=== PATIENT | female | born 1950 | race Caucasian/White ===

== ENCOUNTER 2018-03-07 17:17 | Emergency (ER) | payer MEDICARE ==
[2018-03-07] MEDS ORDERED: NS 0.9% 1000 ML* 1,000 ML IV ONE (17:57)
--- NOTE | 2018-03-07 18:13 | ED ---
Syncope/Near Syncope - HPI Summary HPI Summary: Pt is a 67 y/o female BIBA who presents s/p near-syncopal episode at 17:00. After doing a mild hike with her friend at [facility], she sat down to have lunch. She suddenly felt like she was going to black out, and as if her brain was not getting oxygen. She felt the sensation that her neck was cutting off her oxygen supply around her carotid arteries. Pt laid down on the table and felt like she needed to hold onto the table to be stabled. She became nauseated and subsequently had a BM that was not easy. Pt also states she felt clammy, but denies any CP or SOB. As per friend, she was bending down a lot with her head below her knees during the hike. Pt states lately she has been swimming a lot, and felt last night like she pulled something in her neck. Now she feels better, but still nervous, shaky, and has mild left neck pain. She reports having previous incidents of tachycardia, up to 220 bpm. Pt also states she once thought she had a partially blocked carotic artery, but this turned out to be false. - History Of Current Complaint Chief Complaint: EDDizziness Time Seen by Provider: 03/07/18 17:28 Hx Obtained From: Patient, Family/Assembler Camper - Friend Onset/Duration: Sudden Onset - 17:00, Resolved Context: Witnessed Activity At Onset: At Rest Associated Head Trauma: No Aggravating Factor(s): Other - Unknown, potentially neck movement Alleviating Factor(s): Position Change - Laying down, Other - BM Associated Signs And Symptoms: Diarrhea, Dizzy, Lightheadedness - Allergies/Home Medications Allergies/Adverse Reactions: Allergies Allergy/AdvReac Type Severity Reaction Status Date / Time Penicillins Allergy Hives Verified 03/07/18 17:29 Home Medications: Home Medications Levothyroxine TAB* [Synthroid TAB*] 88 mcg PO DAILY 03/07/18 [History Confirmed 03/07/18] PMH/Surg Hx/FS Hx/Imm Hx Endocrine/Hematology History: Reports: Hx Thyroid Disease - Hypothyroid Cardiovascular History: Reports: Other Cardiovascular Problems/Disorders - Carotid artery issues - Immunization History Date of Tetanus Vaccine: < 10 years Date of Influenza Vaccine: 2017 Immunizations Up to Date: Yes Infectious Disease History: No Infectious Disease History: Denies: Traveled Outside the [place] in Last 30 Days - Family History Known Family History: Positive: Other - NEGATIVE: CVA - Social History Alcohol Use: Rare Substance Use Type: Reports: Marijuana Substance Use Comment - Amount & Last Used: Pt states rarely Smoking Status (MU): Current Some Day Smoker Review of Systems Positive: Skin Diaphoresis - Clammy Negative: Chest Pain Negative: Shortness Of Breath Positive: Nausea, Other - Sudden BM Positive: Other - Neck pain Neurological: Other - Near-syncope Positive: Weakness Positive: Anxious All Other Systems Reviewed And Are Negative: Yes Physical Exam - Summary Physical Exam Summary: GENERAL: Patient is a well developed and nourished F who is lying comfortable in the stretcher. Patient is not in any acute respiratory distress. HEAD AND FACE: Normocephalic EYES: PERRLA, EOMI x 2. EARS: Hearing grossly intact. MOUTH: Oropharynx within normal limits. NECK: Supple, trachea is midline, no adenopathy, no JVD, no carotid bruit. CHEST: Symmetric, no tenderness at palpation LUNGS: Clear to auscultation bilaterally. No wheezing or crackles. CVS: Regular rate and rhythm, S1 and S2 present, no murmurs or gallops appreciated. ABDOMEN: Soft, non-tender. Bowel sounds are normal. No abdominal abnormal pulsations. EXTREMITIES: Full ROM in all major joints, no edema, no cyanosis or clubbing. NEURO: Alert and oriented x 3. No acute neurological deficits. Speech is normal and follows commands. Cranial nerves II-XII grossly intact, no dysmetria finger to nose, nml heel to galvan SKIN: Dry and warm Triage Information Reviewed: Yes Vital Signs On Initial Exam: Initial Vitals Temp Pulse Resp BP Pulse Ox 97.1 F 67 18 152/89 98 03/07/18 17:26 03/07/18 17:26 03/07/18 17:26 03/07/18 17:26 03/07/18 17:26 Vital Signs Reviewed: Yes Diagnostics - Vital Signs Vital Signs Temp Pulse Resp BP Pulse Ox 03/07/18 17:26 97.1 F 67 18 152/89 98 - Laboratory Result Diagrams: 03/07/18 18:27 03/07/18 18:27 Lab Statement: Any lab studies that have been ordered have been reviewed, and results considered in the medical decision making process. - EKG 18:33 Cardiac Rate: NL - 66 bpm EKG Rhythm: Sinus Rhythm ST Segment: Normal EKG Interpretation: No T-wave changes, normal interval Course/Dx Course Of Treatment: Pt is a 67 y/o female BIBA who presents s/p near-syncopal episode at 17:00. After doing a mild hike with her friend at [facility], she sat down to have lunch. She suddenly felt like she was going to black out, and as if her brain was not getting oxygen. She felt the sensation that her neck was cutting off her oxygen supply around her carotid arteries. Pt laid down on the table and felt like she needed to hold onto the table to be stabled. She became nauseated and subsequently had a BM that was not easy. Pt also states she felt clammy, but denies any CP or SOB. As per friend, she was bending down a lot with her head below her knees during the hike. Pt states lately she has been swimming a lot, and felt last night like she pulled something in her neck. Now she feels better, but still nervous, shaky, and has mild left neck pain. She reports having previous incidents of tachycardia, up to 220 bpm. Pt also states she once thought she had a partially blocked carotic artery, but this turned out to be false. A neuro exam was normal. An EKG was normal. Dx are near syncope and neck pain. Pt signed out to Dr. Monsalve, pending CXR and CTA. - Diagnoses Provider Diagnoses: Near syncope, Neck pain Discharge - Sign-Out/Discharge Documenting (check all that apply): Sign-Out Patient Signing out patient TO: Madhu Monsalve - Discharge Plan Condition: Improved Disposition: HOME Patient Education Materials: Near Syncope (ED) Referrals: Zulma Dawkins MD [Primary Care Provider] - Additional Instructions: There was concern by the radiologist that you're carotid arteries may have an irregular appearance suggestive of a condition called fibromuscular dysplasia. Your primary care doctor can refer you to a vascular specialist who would be more equipped to make a proper diagnosis and order any further studies. It does not appear that this has anything to do with your problems today. - Billing Disposition and Condition Condition: IMPROVED Disposition: Home - Attestation Statements Document Initiated by Scribe: Yes Documenting Scribe: Ashley Vasquez Provider For Whom Scribe is Documenting (Include Credential): Renetta Baca MD Scribe Attestation: I, Ashley Vasquez, scribed for Renetta Baca MD on 03/11/18 at 1738. Scribe Documentation Reviewed: Yes Provider Attestation: The documentation as recorded by the scribe, Ashley Vasquez accurately reflects the service I personally performed and the decisions made by me, Renetta Baca MD
[2018-03-07 18:36] LABS: ABS Basophils 0 10^3/ul (0-0.2); ABS Eosinophils 0 10^3/ul (0-0.6); ABS Monocytes 0.4 10^3/ul (0-0.8); ABS Neutrophils 5.3 10^3/ul (1.5-7.7); ABS Nucleated RBC 0 10^3/ul; Eosinophil % 0.7 % (0-6); Hematocrit 36 % (35-47); Hemoglobin 12.7 g/dl (12.0-16.0); Lymphocyte % 14.1 % (25-47); Mean Corpuscular HGB Conc 35 g/dl (31-36); Mean Corpuscular Hemoglobin 32 pg (27-31); Mean Corpuscular Volume 90 fL (80-97); Mean Platelet Volume 8.7 um3 (7.4-10.4); Nucleated Red Blood Cells % 0; Platelet Count 252 10^3/ul (150-450); Red Blood Count 4.04 10^6/ul (4.00-5.40); Red Cell Distribution Width 13 % (10.5-15); White Blood Count 6.8 10^3/ul (3.5-10.8)
[2018-03-07 18:42] LABS: INR 0.94 (0.77-1.02)
[2018-03-07 18:54] LABS: EGFR Non-African American 79.5 (>60)
[2018-03-07] MEDS ORDERED: Iohexol 350* (CONTRAST) 500 ML MDV IV ONE (19:01)
--- NOTE | 2018-03-07 20:16 | RAD ---
EXAM: CT Angiography Head With Intravenous Contrast CLINICAL HISTORY: 67 years old, female; Pain; Other: Left neck pain; Additional info: Left sided neck pain with near syncope TECHNIQUE: Axial computed tomographic angiography images of the head with intravenous contrast using CT angiography protocol. All CT scans at this facility use at least one of these dose optimization techniques: automated exposure control; mA and/or kV adjustment per patient size (includes targeted exams where dose is matched to clinical indication); or iterative reconstruction. 3D and MIP reconstructed images were created and reviewed. Coronal and sagittal reformatted images were created and reviewed. CONTRAST: 80 mL of OMNIPAQUE 350 administered intravenously. COMPARISON: No relevant prior studies available. FINDINGS: Right internal carotid artery: No acute findings. Intracranial segment is patent with no significant stenosis. No aneurysm. Right anterior cerebral artery: Unremarkable. No occlusion or significant stenosis. No aneurysm. Right middle cerebral artery: Unremarkable. No occlusion or significant stenosis. No aneurysm. Right posterior cerebral artery: Patent and type right posterior cerebral artery. No occlusion or significant stenosis. No aneurysm. Right vertebral artery: Unremarkable as visualized. Left internal carotid artery: No acute findings. Intracranial segment is patent with no significant stenosis. No aneurysm. Left anterior cerebral artery: Unremarkable. No occlusion or significant stenosis. No aneurysm. Left middle cerebral artery: Unremarkable. No occlusion or significant stenosis. No aneurysm. Left posterior cerebral artery: Unremarkable. No occlusion or significant stenosis. No aneurysm. Left vertebral artery: Unremarkable as visualized. Basilar artery: Unremarkable. No occlusion or significant stenosis. No aneurysm. Sinuses: Moderate mucosal thickening of the maxillary and ethmoid sinuses. IMPRESSION: 1. No intracranial arterial occlusion or hemodynamically significant stenosis. 2. Moderate mucosal thickening of the maxillary and ethmoid sinuses. EXAM: CT Angiography Neck With Intravenous Contrast CLINICAL HISTORY: 67 years old, female; Pain; Other: Left neck pain; Additional info: Left sided neck pain with near syncope TECHNIQUE: Axial computed tomographic angiography images of the neck with intravenous contrast using CT angiography protocol. All CT scans at this facility use at least one of these dose optimization techniques: automated exposure control; mA and/or kV adjustment per patient size (includes targeted exams where dose is matched to clinical indication); or iterative reconstruction. 3D and MIP reconstructed images were created and reviewed. Coronal and sagittal reformatted images were created and reviewed. CONTRAST: 80 mL of OMNIPAQUE 350 administered intravenously. 80 mL of OMNIPAQUE 350 administered intravenously. COMPARISON: No relevant prior studies available. FINDINGS: VASCULATURE: Right common carotid artery: Mild short segment stenosis of the mid right common carotid artery secondary to soft atherosclerotic plaque. Right internal carotid artery: Multifocal beaded appearance with areas of mild to moderate stenosis along the midportion of the extracranial right internal carotid artery. No dissection or occlusion. Right external carotid artery: Unremarkable. No occlusion. Right vertebral artery: Unremarkable. No significant stenosis. No dissection or occlusion. Left common carotid artery: Mild short segment stenosis of the mid left common carotid artery secondary to soft atherosclerotic plaque. No dissection or occlusion. Left internal carotid artery: Multifocal beaded appearance with areas of mild to moderate stenosis along the midportion of the extracranial left internal carotid artery. No dissection or occlusion. Left external carotid artery: Unremarkable. No occlusion. Left vertebral artery: Limited evaluation of the proximal left vertebral artery due to 2 adjacent beam hardening artifact from venous structures. No significant stenosis. No dissection or occlusion. Other vasculature: Atherosclerotic changes of the aortic arch and great vessel origins. Great vessel origins are patent. NECK: Bones/joints: No acute fracture. No dislocation. Soft tissues: Unremarkable as visualized. No mass. CAROTID STENOSIS REFERENCE USING NASCET CRITERIA: % ICA stenosis = (1 - narrowest ICA diameter/diameter of distal cervical ICA) x 100. Mild - <50% stenosis. Moderate - 50-69% stenosis. Severe - 70-94% stenosis. Near occlusion - 95-99% stenosis. Occluded - 100% stenosis. IMPRESSION: 1. Beaded luminal appearance to the midportions of the bilateral extracranial ICAs, suggestive of possible fibromuscular dysplasia. 2. No occlusion, hemodynamically significant stenosis, or dissection within the arteries of the neck. THIS REPORT CONTAINS FINDINGS THAT MAY BE CRITICAL TO PATIENT CARE. The findings were verbally communicated via telephone conference with Dr. Monsalve at 8:13 PM EDT on 03/07/2018. The findings were acknowledged and understood.
[2018-03-07 20:51] LABS: Urine Appearance Clear; Urine Blood Negative (Negative); Urine Color Colorless; Urine Ketones Negative (Negative); Urine Protein Negative (Negative); Urine Specific Gravity 1.025 (1.010-1.030); Urine Urobilinogen Negative (Negative)
[2018-03-07 21:05] VITALS: BP 136/81
--- NOTE | 2018-03-07 21:27 | ED ---
Progress - Progress Note Progress Note: The case was discussed with Dr. Baca at sign out. Pending was still CTA of the head and neck. I spoke to the radiologist about the study. There is no stenosis seen, but there is a concern about a deep-seated appearance of the extracranial carotids bilaterally, suggestive of fibromuscular dysplasia. I discussed this with the on-call neurologist who felt that it was not relevant to the patient's presenting complaint and could be worked up electively as an outpatient. All of this was discussed with the patient, and she will check with her primary care doctor as far as getting referral to a vascular specialist. Course/Dx - Course Course Of Treatment: Pt is a 67 y/o female BIBA who presents s/p near-syncopal episode at 17:00. After doing a mild hike with her friend at [facility], she sat down to have lunch. She suddenly felt like she was going to black out, and as if her brain was not getting oxygen. She felt the sensation that her neck was cutting off her oxygen supply around her carotid arteries. Pt laid down on the table and felt like she needed to hold onto the table to be stabled. She became nauseated and subsequently had a BM that was not easy. Pt also states she felt clammy, but denies any CP or SOB. As per friend, she was bending down a lot with her head below her knees during the hike. Pt states lately she has been swimming a lot, and felt last night like she pulled something in her neck. Now she feels better, but still nervous, shaky, and has mild left neck pain. She reports having previous incidents of tachycardia, up to 220 bpm. Pt also states she once thought she had a partially blocked carotic artery, but this turned out to be false. A neuro exam was normal. An EKG was normal. Dx are near syncope and neck pain. Pt signed out to Dr. Monsalve, pending CXR and CTA. - Diagnoses Provider Diagnoses: Near syncope, Neck pain Discharge - Sign-Out/Discharge Documenting (check all that apply): Patient Departure - Discharge Plan Condition: Improved Disposition: HOME Patient Education Materials: Near Syncope (ED) Referrals: Zulma Dawkins MD [Primary Care Provider] - Additional Instructions: There was concern by the radiologist that you're carotid arteries may have an irregular appearance suggestive of a condition called fibromuscular dysplasia. Your primary care doctor can refer you to a vascular specialist who would be more equipped to make a proper diagnosis and order any further studies. It does not appear that this has anything to do with your problems today. - Billing Disposition and Condition Condition: IMPROVED Disposition: Home
--- NOTE | 2018-03-08 07:12 | RAD ---
INDICATION: Near syncope. COMPARISON: Comparison is made with a prior chest x-ray study from November 29, 2008. TECHNIQUE: A portable view of the chest was obtained. FINDINGS: Cardiac and mediastinal contours appear to be within normal limits. The lungs are clear. No pleural effusion is seen. IMPRESSION: NO EVIDENCE FOR ACUTE DISEASE. R1
== END 2018-03-07 21:44 | disposition home or self-care (01) ==
LOC: ED 17:17
DX: R55 Syncope and collapse (principal); M54.2 Cervicalgia; E03.9 Hypothyroidism, unspecified; F17.200 Nicotine dependence, unspecified, uncomplicated
CPT/HCPCS: 36415; 70496; 70498; 71045; 80053; 81003; 83605; 84484; 85025; 85610; 85730; 93005; 99283; Q9967

== ENCOUNTER 2022-09-01 12:24 | Observation (INO) ==
[2022-09-01 13:05] LABS: ABS Eosinophils 0.2 10^3/ul (0-0.6); ABS Lymphocytes 1.7 10^3/ul (1.0-4.8); ABS Monocytes 0.4 10^3/ul (0-0.8); ABS Neutrophils 2.2 10^3/ul (1.5-7.7); Hematocrit 40 % (35-47); Lymphocyte % 37.1 %; Mean Corpuscular HGB Conc 35 g/dL (31-36); Mean Corpuscular Hemoglobin 31 pg (27-31); Mean Corpuscular Volume 90 fL (80-97); Mean Platelet Volume 8.6 fL (7.4-10.4); Platelet Count 305 10^3/uL (150-450); Red Blood Count 4.48 10^6 /uL (3.70-4.87); Red Cell Distribution Width 13 % (10-15); White Blood Count 4.5 10^3/uL (3.5-10.8)
[2022-09-01] MEDS ORDERED: Ondansetron 4 mg VIAL 2 MG/ML 2 ml VIAL IV ONE (13:34)
[2022-09-01 13:38] LABS: ALT 13 U/L (7-52); AST 19 U/L (13-39); Albumin 4.3 g/dL (3.2-5.2); Albumin/Globulin Ratio 1.9 (1-3); Alcohol, S < 13 mg/dL (<13); Alkaline Phosphatase 96 U/L (35-149); Anion Gap 9 mmol/L (2-11); Blood Urea Nitrogen 6 mg/dL (6-24); CO2 Carbon Dioxide 26 mmol/L (22-32); Calcium 9.8 mg/dL (8.6-10.3); Chloride 97 mmol/L (101-111); Creatinine, Serum 0.58 mg/dL (0.51-0.95); Globulin 2.3 g/dL (2-4); Glucose 133 mg/dL (70-100); Potassium 3.3 mmol/L (3.5-5.0); Sodium 132 mmol/L (135-145); Total Protein 6.6 g/dL (6.4-8.9); eGFR CKD-EPI 96.1 (>60)
[2022-09-01] MEDS ORDERED: Ondansetron 4 mg VIAL 2 MG/ML 2 ml VIAL ONE (14:19)
[2022-09-01] MEDS ORDERED: Acetaminophen IV 1 GM/100ML 1,000 MG/100 ML BAG IV ONE (14:45)
[2022-09-01] MEDS ORDERED: Lactated Ringers 1000 ml BAG 1,000 ML IV SCH ×2 (15:00→17:00)
[2022-09-01] MEDS ORDERED: KCL 20 MEQ/100 ML IVPREMIX 20 MEQ/100 ML BAG IV ONE (16:20)
[2022-09-01] MEDS ORDERED: Ondansetron 4 mg VIAL 2 MG/ML 2 ml VIAL IV PRN (16:38)
[2022-09-01] MEDS ORDERED: hydrALAZINE 20 mg/ml 1 ML Vial IV IV SLOW PU PRN (18:09)
[2022-09-02 04:27] LABS: ABS Lymphocytes 1.3 10^3/ul (1.0-4.8); ABS Monocytes 0.6 10^3/ul (0-0.8); ABS Neutrophils 3.9 10^3/ul (1.5-7.7); Eosinophil % 0.4 %; Hematocrit 37 % (35-47); Lymphocyte % 22.3 %; Mean Corpuscular HGB Conc 36 g/dL (31-36); Mean Corpuscular Hemoglobin 32 pg (27-31); Mean Corpuscular Volume 88 fL (80-97); Mean Platelet Volume 8.6 fL (7.4-10.4); Platelet Count 270 10^3/uL (150-450); Red Blood Count 4.14 10^6 /uL (3.70-4.87); Red Cell Distribution Width 13 % (10-15); White Blood Count 5.7 10^3/uL (3.5-10.8)
[2022-09-02 05:12] LABS: Calcium 9.3 mg/dL (8.6-10.3); Creatinine, Serum 0.62 mg/dL (0.51-0.95); Potassium 3.5 mmol/L (3.5-5.0); eGFR CKD-EPI 94.6 (>60)
[2022-09-02] MEDS ORDERED: Potassium Chlor 20 meq TAB.ER PO SCH ×3 (09:00→21:00)
[2022-09-02 12:44] VITALS: BP 140/64
== END 2022-09-02 15:56 | disposition home or self-care (01) ==
LOC: EDHOLD 12:24 → ED 12:24 → EDHOLD 09-02 08:00 → MEDTELE 09-02 09:52
PROVIDERS: ADMIT Internal Medicine; ATTEND Internal Medicine

== ENCOUNTER 2023-03-21 16:03 | Inpatient (IN) ==
[2023-03-21 16:50] LABS: ABS Eosinophils 0.1 10^3/uL (0.0-0.5); ABS Lymphocytes 1.2 10^3/uL (1.0-4.8); ABS Monocytes 0.3 10^3/uL (0.0-0.9); ABS Neutrophils 3.6 10^3/uL (1.5-7.6); ABS Nucleated RBC 0.03 10^3/ul; Eosinophil % 1.5 %; Hematocrit 38.9 % (35-45); Hemoglobin 13.8 g/dL (11.5-14.3); Lymphocyte % 23.4 %; Mean Corpuscular Hemoglobin 31.7 pg (27-33); Mean Corpuscular Hgb Conc 35.6 g/dL (31-36); Mean Platelet Volume 9.2 fL (7.5-11.2); Nucleated Red Blood Cells % 0.5 /100 WBC (0.0-0.4); Platelet Count 269 10^3/uL (150-450); Red Blood Count 4.37 10^6/uL (3.63-4.92); Red Cell Distribution Width 13.5 % (12-17); White Blood Count 5.3 10^3/uL (3.8-11.8)
[2023-03-21] MEDS ORDERED: Iodixanol (CONTRAST) 320 MG/ML 100 ML SDV IV ONE ×2 (16:56→17:02)
[2023-03-21 17:09] LABS: Albumin 4.6 g/dL (3.2-5.2); Albumin/Globulin Ratio 2.1 (1-3); Calcium 9.8 mg/dL (8.6-10.3); Creatinine, Serum 0.65 mg/dL (0.51-0.95); Globulin 2.2 g/dL (2-4); Potassium 3.7 mmol/L (3.5-5.0); Total Bilirubin 0.6 mg/dL (0.2-1.0); Total Protein 6.8 g/dL (6.4-8.9); eGFR CKD-EPI 92.9 (>60)
[2023-03-21 17:52] LABS: TSH Ultra Thyroid Stim Horm 2.54 mcIU/mL (0.34-5.60)
[2023-03-21 18:33] LABS: High Sensitivity Troponin 1 Hr 4 pg/mL (<15)
[2023-03-21 19:13] LABS: Activated Partial Thrombo Time 29.6 seconds (26.0-38.0); INR 0.99 (0.83-1.13)
[2023-03-21 19:22] LABS: ALT 12 U/L (7-52); AST 18 U/L (13-39); Albumin 4.5 g/dL (3.2-5.2); Alkaline Phosphatase 115 U/L (35-149); Anion Gap 7 mmol/L (2-16); Blood Urea Nitrogen 8 mg/dL (6-24); CO2 Carbon Dioxide 25 mmol/L (22-32); Calcium 9.4 mg/dL (8.6-10.3); Chloride 107 mmol/L (101-111); Cholesterol 226 mg/dL; Creatinine, Serum 0.65 mg/dL (0.51-0.95); Globulin 2.2 g/dL (2-4); Glucose 142 mg/dL (70-100); HDL Cholesterol 46.6 mg/dL; LDL Cholesterol 118 mg/dL; Potassium 3.8 mmol/L (3.5-5.0); Sodium 139 mmol/L (135-145); Total Protein 6.7 g/dL (6.4-8.9); Triglycerides 305 mg/dL; eGFR CKD-EPI 92.9 (>60)
[2023-03-21 22:10] LABS: Urine Appearance Clear; Urine Bilirubin Negative (Negative); Urine Blood Negative (Negative); Urine Color Colorless; Urine Glucose Negative (Negative); Urine Ketones Negative (Negative); Urine Nitrite Negative (Negative); Urine Protein Negative (Negative); Urine Urobilinogen Negative (Negative)
[2023-03-21 22:15] LABS: Urine Bacteria Absent (Absent); Urine Red Blood Cell Absent (Absent); Urine White Blood Cell Trace(0-5/hpf) (Absent)
[2023-03-22] MEDS ORDERED: Potassium Chlor 20 meq TAB.ER PO ONE (12:59)
[2023-03-22] MEDS ORDERED: Metoprolol Tartrate 5 mg VIAL 5 ml VIAL (1 mg/ml) IV ONE ×2 (18:08→21:46)
[2023-03-22] MEDS ORDERED: Metoprolol Tartrate 5 mg VIAL 5 ml VIAL (1 mg/ml) ONE (18:12)
[2023-03-23 05:13] LABS: ABS Eosinophils 0.1 10^3/uL (0.0-0.5); ABS Lymphocytes 1.9 10^3/uL (1.0-4.8); ABS Monocytes 0.4 10^3/uL (0.0-0.9); ABS Neutrophils 2.4 10^3/uL (1.5-7.6); ABS Nucleated RBC 0.01 10^3/ul; Eosinophil % 2.3 %; Hematocrit 37.9 % (35-45); Hemoglobin 13.6 g/dL (11.5-14.3); Lymphocyte % 38.7 %; Mean Corpuscular Hemoglobin 31.8 pg (27-33); Mean Corpuscular Hgb Conc 35.9 g/dL (31-36); Mean Corpuscular Volume 88.5 fL (80-97); Mean Platelet Volume 9.3 fL (7.5-11.2); Nucleated Red Blood Cells % 0.1 /100 WBC (0.0-0.4); Platelet Count 281 10^3/uL (150-450); Red Blood Count 4.28 10^6/uL (3.63-4.92); Red Cell Distribution Width 13.8 % (12-17); White Blood Count 4.8 10^3/uL (3.8-11.8)
[2023-03-23 05:28] LABS: Calcium 9.3 mg/dL (8.6-10.3); Creatinine, Serum 0.77 mg/dL (0.51-0.95); HDL Cholesterol 40.5 mg/dL; Potassium 3.9 mmol/L (3.5-5.0); eGFR CKD-EPI 81.4 (>60)
[2023-03-23 16:12] VITALS: BP 133/61
== END 2023-03-23 19:28 | disposition home or self-care (01) | DRG 69 ==
LOC: EDHOLD 16:03 → ED 16:03 → SUATTDRO 18:39 → MEDTELE 03-22 09:15
PROVIDERS: ADMIT Internal Medicine; ATTEND Hospitalist